=== PATIENT | female | born 1960 | race Caucasian/White ===

== ENCOUNTER → 2023-07-08 | Outpatient (CLI) | payer OTHER | LOC: M PLARAD 10:05 | PROVIDERS: ATTEND Registered Nurse | DX: R91.1 Solitary pulmonary nodule (principal) ==

== ENCOUNTER 2023-08-07 08:57 | Day surgery (SDC) | payer OTHER ==
[~2023-08-07] VITALS: Ht 165.1 cm; Wt 82.6 kg
[~2023-08-07 08:57] MED LIST: ACET650T15 PO; ASPI-226 PO; ATOR1TAB21 PO; CALCCHW4 PO; CYCL1DRO10 OU; DILT180C70 PO; ESTR62CR; IRON325T2 PO; LEVOTAB10 PO; LISI10TA22 PO; MELO15TA28 PO; MM S100C PO; MOME50SP2; MONT10TA97 PO; NIAC500T29 PO; OMEP-173 PO; PRES1CAP PO; VITA100093 PO
[2023-08-07] MEDS ORDERED: SUGAMMADEX SODIUM 500 MG/5 ML VIAL (BRIDION) As Ordered ONE (09:46)
[2023-08-07] MEDS ORDERED: MIDAZOLAM INJ 2MG/2ML VIAL As Ordered ONE (09:46)
[2023-08-07] MEDS ORDERED: ONDANSETRON 4MG 2ML VIAL As Ordered ONE (09:46)
[2023-08-07] MEDS ORDERED: propofoL 200 MG/20 ML VIAL As Ordered ONE (09:46)
[2023-08-07] MEDS ORDERED: LIDOCAINE 2% 100MG/5ML SDV (FOR ANES.) As Ordered ONE (09:46)
[2023-08-07] MEDS ORDERED: ROCURONIUM BROMIDE 50MG/5ML VIAL As Ordered ONE (09:46)
[2023-08-07] MEDS ORDERED: fentaNYL 100 MCG/2 ML INJECTION As Ordered ONE (09:47)
[2023-08-07] MEDS ORDERED: GLYCOPYRROLATE INJ 0.2 MG/ML 2 ML VIAL As Ordered ONE (09:51)
[2023-08-07] MEDS ORDERED: fentaNYL 100 MCG/2 ML INJECTION IV PRN (10:05)
[2023-08-07] MEDS ORDERED: ONDANSETRON 4MG 2ML VIAL IV PRN (10:05)
[2023-08-07] MEDS ORDERED: oxyCODONE 5MG TAB PO PRN (10:05)
[2023-08-07] MEDS ORDERED: MORPHINE 2 MG/ML 1ML VIAL IV PRN (10:05)
[2023-08-07] MEDS ORDERED: LR 1,000 ML IV SCH (10:05)
[2023-08-07] MEDS ORDERED: flumazeniL 0.5MG/5ML VIAL As Ordered ONE (10:45)
[2023-08-07] MEDS ORDERED: CETACAINE SPRAY 5GM As Ordered ONE (10:58)
[2023-08-07 11:53] VITALS: BP 133/69; TEMP 97.4; O2SAT 98
== END 2023-08-07 11:59 | disposition home or self-care (01) ==
LOC: M SDC 08:57
PROVIDERS: ATTEND Internal Medicine Pulmonary Disease
DX: R59.0 Localized enlarged lymph nodes (principal); K21.9 Gastro-esophageal reflux disease without esophagitis; I48.91 Unspecified atrial fibrillation; M19.90 Unspecified osteoarthritis, unspecified site; M25.552 Pain in left hip; M25.569 Pain in unspecified knee; Z79.899 Other long term (current) drug therapy; Z79.82 Long term (current) use of aspirin
CPT/HCPCS: 31629; 31652; 71045; 88173; 88305; J1100; J2250; J2405; J3010

== ENCOUNTER → 2023-11-04 | Outpatient (CLI) | payer OTHER ==
[~2023-11-04] MED LIST changes: +ISOVUE-300 61% 100ML VIAL As Ordered ONE; +LIDOCAINE 1% MDV 20ML VIAL As Ordered ONE; +TRIAMCINOLONE ACETONIDE SUSP 40MG/ML 1ML VIAL As Ordered ONE
== END ==
LOC: M RAD 14:54
PROVIDERS: ATTEND Orthopaedic Surgery
DX: M70.62 Trochanteric bursitis, left hip (principal)
CPT/HCPCS: 20610; 77002; J3301; Q9967